=== PATIENT | female | born 1975 | race Caucasian/White ===

== ENCOUNTER 2019-08-14 17:47 | Inpatient (IN) | payer BC ==
[2019-08-14] MEDS ORDERED: Sodium Chloride 0.9% 1,000 ML IV ONE ×2 (17:53→19:10)
[2019-08-14] MEDS ORDERED: LORazepam 2 MG/ML SDV IVPUSH ONE (17:53)
--- NOTE | 2019-08-14 17:58 | EDM.PDOC ---
ED HPI GENERAL MEDICAL PROBLEM - General Stated Complaint: FAINT,BODY PAIN Time Seen by Provider: 08/14/19 17:55 Source of Information: Reports: Patient History Limitations: Reports: No Limitations - History of Present Illness INITIAL COMMENTS - FREE TEXT/NARRATIVE: Inga is a 43 year old female who presents to the ED today via private vehicle with sudden onset of epigastric pain, severe in nature with body tingling. symptoms started approx one hour prior to arrival. Patient reports that this is the third time this has happened this week. Pain not affected by mediations or movement. Patient reports hx of "enlarged heart" denies any other hx or daily medication. Patient reports she was playing a game when pain started. Onset: Today, Sudden Duration: Hour(s): (1) Chest Pain Score (Numeric/FACES): 3 - Related Data Allergies Allergy/AdvReac Type Severity Reaction Status Date / Time morphine Allergy Itching Verified 08/14/19 18:13 Home Meds: Home Meds LORazepam [Ativan] 1 tab PO DAILY 08/14/19 [History] Omeprazole Magnesium [Prilosec Otc] 20 mg PO DAILY #30 tablet. 08/14/19 [Rx] ED ROS GENERAL - Review of Systems Review Of Systems: Comprehensive ROS is negative, except as noted in HPI. ED EXAM, GENERAL - Physical Exam Exam: See Below Exam Limited By: No Limitations General Appearance: Alert, Moderate Distress (gaurding her mid chest, diaphoretic, clammy) Throat/Mouth: Normal Inspection, Normal Oropharynx Head: Atraumatic Neck: Normal Inspection Respiratory/Chest: No Respiratory Distress, Lungs Clear, Normal Breath Sounds, Other (tenderness on exam to xyphoid process) Cardiovascular: Normal Peripheral Pulses, No Murmur Back Exam: Normal Inspection Extremities: Normal Inspection Neurological: Alert, Oriented Psychiatric: Anxious Skin Exam: Diaphoretic, Pallor Lymphatic: No Adenopathy EKG INTERPRETATION EKG Date: 08/14/19 Time: 18:10 Rhythm: NSR [place]: Normal P-Wave: Present QRS: Normal ST-T: Normal QT: Normal Comparison: NA - No Prior EKG Course - Vital Signs Last Recorded V/S: Last Vital Signs Temp 35.1 C L 08/14/19 18:34 Pulse 66 08/14/19 21:25 Resp 19 08/14/19 21:25 BP 101/59 L 08/14/19 21:25 Pulse Ox 99 08/14/19 21:25 Inga is a 43 year old female, presents to the ED with c/o chest pain. Please refer to HPI and focused exam. Patient reports this is her third episode of this in the last week. Patient arrives here very anxious, pale and diaphoretic , came back in wheelchair with RN moaning loudly in pain, clutching her chest. Patient was changed into gown, PIV established, she denies any hx of this prior to this week. Patient has stable blood pressure, heart rate, she is afebrile with 100% oxygen saturation. Patient moaning about IV start stating repeatedly that she "vasovagals" when she is stuck with a needle. Patient denies any recent illness, she does endorse nausea and is noted to have intermittent gagging during initial exam and cares. I am not certain if this is really cardiac in etiology, PE on the differential but patient is not hypoxic and denies SOB. I think her symptoms have certainly an anxiety/panic attack component. Esophageal spasm may be playing a role as well. Patient given IV Ativan pending labs. Patient reports that she does have Ativan at home for anxiety. Pain improved here with IV Ativan and GI cocktail. Informed nurse that pain happens when she drinks ETOH and/or eats fatty foods. Patient's labs here not concerning for an acute cholecystitis, however , at 1999-Patient's pain returned, not as severe, given Carafate and Fentanyl. CT scan obtained pain seems colicky in nature. 2119-CT scan returns with multiple stones, distended gallbladder with biliary duct dilation. ? suspicion of faint stones within the distal common bile duct measuring up to 2-3 mm although unlikely given normal labs. Discussed case with Dr. Lockett, surgeon, plan to admit patient, NPO after midnight, surgery tomorrow morning. Patient updated on plan of care and is agreeable. Inpatient ordered initiated. Azactam and Unasyn started per Dr. Lockett request. Patient admitted in stable condition. - Orders/Labs/Meds Orders: Active Orders 24 hr Category Date Time Status EKG Documentation Completion [RC] ASDIRECTED Care 08/14/19 17:53 Active Peripheral IV Care [RC] . DIRECTED Care 06/12/20 17:53 Active Chest 2V [CR] Stat Exams 08/14/19 18:31 Taken CORONAVIRUS COVID-19, RANDY Stat Lab 08/14/19 21:29 Ordered Ampicillin/Sulbactam Na [Unasyn] 3 gm Med 08/14/19 21:24 Active Sodium Chloride 0.9% [Normal Saline] 100 ml IV ONETIME Aztreonam [Azactam] 1 gm Med 08/14/19 21:30 Active Sodium Chloride 0.9% [Normal Saline] 50 ml IV Q8H Iopamidol [Isovue-300 (61%)] Med 08/14/19 20:45 Active 100 ml IV . DIRECTED Sodium Chloride 0.9% [Normal Saline] 80 ml Med 08/14/19 20:45 Active IV ASDIRECTED Sodium Chloride 0.9% [Saline Flush] Med 08/14/19 17:53 Active 10 ml FLUSH ASDIRECTED PRN Peripheral IV Insertion Adult [OM.PC] Routine Oth 08/14/19 17:53 Ordered EKG 12 Lead [EK] Stat Ther 08/14/19 17:52 Ordered Medication Orders Sodium Chloride (Normal Saline) 80 mls @ 3 mls/sec IV ASDIRECTED SUJIT Last Admin: 08/14/19 20:46 Dose: 3 mls/sec Ampicillin Sodium/Sulbactam (Sodium 3 gm/ Sodium Chloride) 100 mls @ 200 mls/ hr IV ONETIME ONE Stop: 08/14/19 21:53 Aztreonam 1 gm/ Sodium (Chloride) 50 mls @ 100 mls/hr IV Q8H SUJIT Iopamidol (Isovue-300 (61%)) 100 ml IV . DIRECTED SUJIT Last Admin: 08/14/19 20:46 Dose: 100 ml Sodium Chloride (Saline Flush) 10 ml FLUSH ASDIRECTED PRN PRN Reason: Keep Vein Open Last Admin: 08/14/19 20:46 Dose: 10 ml Admin: 08/14/19 18:18 Dose: 10 ml Labs: Laboratory Tests 08/14/19 08/14/19 08/14/19 Range/Units 17:54 18:07 18:07 WBC 10.0 (4.5-11.0) K/uL RBC 4.48 (3.30-5.50) M/uL Hgb 13.8 (12.0-15.0) g/dL Hct 40.7 (36.0-48.0) % MCV 91 (80-98) fL MCH 31 (27-31) pg MCHC 34 (32-36) % Plt Count 351 (150-400) K/uL Neut % (Auto) 48 (36-66) % Lymph % (Auto) 41 (24-44) % Gilchrist % (Auto) 9 H (2-6) % Eos % (Auto) 1 L (2-4) % Baso % (Auto) 1 (0-1) % D-Dimer, Quantitative < 100 (0.0-400.0) ng/mL Sodium 139 L (140-148) mmol/L Potassium 3.4 L (3.6-5.2) mmol/L Chloride 100 (100-108) mmol/L Carbon Dioxide 21 (21-32) mmol/L Anion Gap 21.4 H (5.0-14.0) mmol/L BUN 20 H (7-18) mg/dL Creatinine 1.3 H (0.6-1.0) mg/dL Est Cr Clr Drug Dosing 57.45 mL/min Estimated GFR (MDRD) 45 L (>60) Glucose 132 H (74-106) mg/dL Calcium 9.2 (8.5-10.1) mg/dL Total Bilirubin 0.5 (0.2-1.0) mg/dL AST 31 (15-37) U/L ALT 33 (12-78) U/L Alkaline Phosphatase 41 L (46-116) U/L Troponin I < 0.017 (0.000-0.056) ng/mL Total Protein 7.5 (6.4-8.2) g/dL Albumin 4.4 (3.4-5.0) g/dL Globulin 3.1 (2.3-3.5) g/dL Albumin/Globulin Ratio 1.4 (1.2-2.2) Lipase (73-393) U/L Urine Color (YELLOW) Urine Appearance (CLEAR) Urine pH (5.0-8.0) Ur Specific [place] (1.008-1.030) Urine Protein (NEGATIVE) mg/dL Urine Glucose (UA) (NEGATIVE) mg/dL Urine Ketones (NEGATIVE) mg/dL Urine Occult Blood (NEGATIVE) Urine Nitrite (NEGATIVE) Urine Bilirubin (NEGATIVE) Urine Urobilinogen (0.2-1.0) EU/dL Ur Leukocyte Esterase (NEGATIVE) Urine RBC (0-5) Urine WBC (0-5) Ur Epithelial Cells Amorphous Sediment Urine Bacteria Urine Mucus Urine HCG, Qual Urine Opiates Screen (NEGATIVE) Ur Oxycodone Screen (NEGATIVE) Urine Methadone Screen (NEGATIVE) Ur Propoxyphene Screen (NEGATIVE) Ur Barbiturates Screen (NEGATIVE) Ur Tricyclics Screen (NEGATIVE) Ur Phencyclidine Scrn (NEGATIVE) Ur Amphetamine Screen (NEGATIVE) U Methamphetamines Scrn (NEGATIVE) Urine MDMA Screen (NEGATIVE) U Benzodiazepines Scrn (NEGATIVE) U Cocaine Metab Screen (NEGATIVE) U Marijuana (THC) Screen (NEGATIVE) 08/14/19 08/14/19 08/14/19 Range/Units 18:16 18:16 18:42 WBC (4.5-11.0) K/uL RBC (3.30-5.50) M/uL Hgb (12.0-15.0) g/dL Hct (36.0-48.0) % MCV (80-98) fL MCH (27-31) pg MCHC (32-36) % Plt Count (150-400) K/uL Neut % (Auto) (36-66) % Lymph % (Auto) (24-44) % Gilchrist % (Auto) (2-6) % Eos % (Auto) (2-4) % Baso % (Auto) (0-1) % D-Dimer, Quantitative (0.0-400.0) ng/mL Sodium (140-148) mmol/L Potassium (3.6-5.2) mmol/L Chloride (100-108) mmol/L Carbon Dioxide (21-32) mmol/L Anion Gap (5.0-14.0) mmol/L BUN (7-18) mg/dL Creatinine (0.6-1.0) mg/dL Est Cr Clr Drug Dosing mL/min Estimated GFR (MDRD) (>60) Glucose (74-106) mg/dL Calcium (8.5-10.1) mg/dL Total Bilirubin (0.2-1.0) mg/dL AST (15-37) U/L ALT (12-78) U/L Alkaline Phosphatase (46-116) U/L Troponin I (0.000-0.056) ng/mL Total Protein (6.4-8.2) g/dL Albumin (3.4-5.0) g/dL Globulin (2.3-3.5) g/dL Albumin/Globulin Ratio (1.2-2.2) Lipase 278 (73-393) U/L Urine Color (YELLOW) Urine Appearance (CLEAR) Urine pH (5.0-8.0) Ur Specific [place] (1.008-1.030) Urine Protein (NEGATIVE) mg/dL Urine Glucose (UA) (NEGATIVE) mg/dL Urine Ketones (NEGATIVE) mg/dL Urine Occult Blood (NEGATIVE) Urine Nitrite (NEGATIVE) Urine Bilirubin (NEGATIVE) Urine Urobilinogen (0.2-1.0) EU/dL Ur Leukocyte Esterase (NEGATIVE) Urine RBC (0-5) Urine WBC (0-5) Ur Epithelial Cells Amorphous Sediment Urine Bacteria Urine Mucus Urine HCG, Qual Negative Urine Opiates Screen Negative (NEGATIVE) Ur Oxycodone Screen Negative (NEGATIVE) Urine Methadone Screen Negative (NEGATIVE) Ur Propoxyphene Screen Negative (NEGATIVE) Ur Barbiturates Screen Negative (NEGATIVE) Ur Tricyclics Screen Negative (NEGATIVE) Ur Phencyclidine Scrn Negative (NEGATIVE) Ur Amphetamine Screen Negative (NEGATIVE) U Methamphetamines Scrn Negative (NEGATIVE) Urine MDMA Screen Negative (NEGATIVE) U Benzodiazepines Scrn Negative (NEGATIVE) U Cocaine Metab Screen Negative (NEGATIVE) U Marijuana (THC) Screen Negative (NEGATIVE) 08/14/19 Range/Units 20:35 WBC (4.5-11.0) K/uL RBC (3.30-5.50) M/uL Hgb (12.0-15.0) g/dL Hct (36.0-48.0) % MCV (80-98) fL MCH (27-31) pg MCHC (32-36) % Plt Count (150-400) K/uL Neut % (Auto) (36-66) % Lymph % (Auto) (24-44) % [place] % (Auto) (2-6) % Eos % (Auto) (2-4) % Baso % (Auto) (0-1) % D-Dimer, Quantitative (0.0-400.0) ng/mL Sodium (140-148) mmol/L Potassium (3.6-5.2) mmol/L Chloride (100-108) mmol/L Carbon Dioxide (21-32) mmol/L Anion Gap (5.0-14.0) mmol/L BUN (7-18) mg/dL Creatinine (0.6-1.0) mg/dL Est Cr Clr Drug Dosing mL/min Estimated GFR (MDRD) (>60) Glucose (74-106) mg/dL Calcium (8.5-10.1) mg/dL Total Bilirubin (0.2-1.0) mg/dL AST (15-37) U/L ALT (12-78) U/L Alkaline Phosphatase (46-116) U/L Troponin I (0.000-0.056) ng/mL Total Protein (6.4-8.2) g/dL Albumin (3.4-5.0) g/dL Globulin (2.3-3.5) g/dL Albumin/Globulin Ratio (1.2-2.2) Lipase (73-393) U/L Urine Color Yellow (YELLOW) Urine Appearance Clear (CLEAR) Urine pH 7.0 (5.0-8.0) Ur Specific [place] 1.020 (1.008-1.030) Urine Protein Negative (NEGATIVE) mg/dL Urine Glucose (UA) Negative (NEGATIVE) mg/dL Urine Ketones Trace H (NEGATIVE) mg/dL Urine Occult Blood Negative (NEGATIVE) Urine Nitrite Negative (NEGATIVE) Urine Bilirubin Negative (NEGATIVE) Urine Urobilinogen 0.2 (0.2-1.0) EU/dL Ur Leukocyte Esterase Negative (NEGATIVE) Urine RBC 0-5 (0-5) Urine WBC 0-5 (0-5) Ur Epithelial Cells Few Amorphous Sediment Few Urine Bacteria Not seen Urine Mucus Not seen Urine HCG, Qual Urine Opiates Screen (NEGATIVE) Ur Oxycodone Screen (NEGATIVE) Urine Methadone Screen (NEGATIVE) Ur Propoxyphene Screen (NEGATIVE) Ur Barbiturates Screen (NEGATIVE) Ur Tricyclics Screen (NEGATIVE) Ur Phencyclidine Scrn (NEGATIVE) Ur Amphetamine Screen (NEGATIVE) U Methamphetamines Scrn (NEGATIVE) Urine MDMA Screen (NEGATIVE) U Benzodiazepines Scrn (NEGATIVE) U Cocaine Metab Screen (NEGATIVE) U Marijuana (THC) Screen (NEGATIVE) Meds: Medications Generic Name Dose Route Start Last Admin Trade Name Freq PRN Reason Stop Dose Admin Sodium Chloride 80 mls @ 3 mls/sec 08/14/19 20:45 08/14/19 20:46 Normal Saline IV 3 mls/sec ASDIRECTED SUJIT Administration Ampicillin Sodium/Sulbactam 100 mls @ 200 mls/hr 08/14/19 21:24 Sodium 3 gm/ Sodium Chloride IV 08/14/19 21:53 ONETIME ONE Aztreonam 1 gm/ Sodium 50 mls @ 100 mls/hr 08/14/19 21:30 Chloride IV Q8H SUJIT Iopamidol 100 ml 08/14/19 20:45 08/14/19 20:46 Isovue-300 (61%) IV 100 ml . DIRECTED SUJIT Administration Sodium Chloride 10 ml 08/14/19 17:53 08/14/19 20:46 Saline Flush FLUSH 10 ml ASDIRECTED PRN Administration Keep Vein Open Discontinued Medications Generic Name Dose Route Start Last Admin Trade Name Freq PRN Reason Stop Dose Admin Al Hydroxide/Mg Hydroxide 15 0 ml 08/14/19 18:30 08/14/19 18:44 ml/ Lidocaine HCl 15 ml PO 08/14/19 18:31 15 ml ONETIME ONE Administration Fentanyl 50 mcg 08/14/19 19:49 08/14/19 20:01 Sublimaze IVPUSH 08/14/19 19:50 50 mcg ONETIME ONE Administration Hydromorphone HCl 1 mg 08/14/19 20:22 08/14/19 21:12 Dilaudid IVPUSH 08/14/19 20:23 1 mg ONETIME ONE Administration Sodium Chloride 1,000 mls @ 999 mls/hr 08/14/19 17:53 08/14/19 18:18 Normal Saline IV 08/14/19 18:53 999 mls/hr .BOLUS ONE Administration Sodium Chloride 1,000 mls @ 999 mls/hr 08/14/19 19:10 08/14/19 19:21 Normal Saline IV 08/14/19 20:10 999 mls/hr .BOLUS ONE Administration Lorazepam 1 mg 08/14/19 17:53 08/14/19 18:18 Ativan IVPUSH 08/14/19 17:54 1 mg ONETIME ONE Administration Sucralfate 1 gm 08/14/19 20:07 08/14/19 21:16 Carafate PO 08/14/19 20:08 1 gm ONETIME ONE Administration Departure - Departure Time of Disposition: 22:00 Disposition: Admitted As Inpatient 68 Condition: Fair Clinical Impression: Epigastric pain, Acute cholecystitis - Discharge Information Prescriptions: Omeprazole Magnesium [Prilosec Otc] 20 mg PO DAILY #30 tablet. Referrals: PCP,None [Primary Care Provider] - Additional Instructions: Start Prilosec tonight and take daily. Follow up with your primary care provider when you get back home for outpatient Ultrasound for your gallbladder. Avoid fatty foods and alcohol until then. I want your kidney function rechecked next week. Return here with any worsening symptoms or new concerns. Sepsis Event Note (ED) - Focused Exam Vital Signs: Vital Signs Temp Pulse Resp BP Pulse Ox 08/14/19 21:25 66 19 101/59 L 99 08/14/19 20:55 16 L 17 109/63 93 L 08/14/19 20:28 58 L 18 94/48 L 99 08/14/19 20:05 51 L 12 112/53 L 94 L 08/14/19 19:25 47 L 17 114/61 100 08/14/19 18:34 35.1 C L 67 25 H 110/53 L 08/14/19 18:33 54 L 20 108/61 100 08/14/19 18:15 52 L 18 114/58 L 99 08/14/19 17:55 35.1 C L 67 32 H 110/53 L 100 - My Orders Last 24 Hours: My Active Orders 08/14/19 17:52 EKG 12 Lead [EK] Stat 08/14/19 17:53 EKG Documentation Completion [RC] ASDIRECTED Peripheral IV Care [RC] . DIRECTED Sodium Chloride 0.9% [Saline Flush] 10 ml FLUSH ASDIRECTED PRN Peripheral IV Insertion Adult [OM.PC] Routine 08/14/19 18:31 Chest 2V [CR] Stat 08/14/19 20:45 Iopamidol [Isovue-300 (61%)] 100 ml IV . DIRECTED Sodium Chloride 0.9% [Normal Saline] 80 ml IV ASDIRECTED 08/14/19 21:24 Ampicillin/Sulbactam Na [Unasyn] 3 gm Sodium Chloride 0.9% [Normal Saline] 100 ml IV ONETIME 08/14/19 21:29 CORONAVIRUS COVID-19, RANDY Stat 08/14/19 21:30 Aztreonam [Azactam] 1 gm Sodium Chloride 0.9% [Normal Saline] 50 ml IV Q8H - Assessment/Plan Last 24 Hours: My Active Orders 08/14/19 17:52 EKG 12 Lead [EK] Stat 08/14/19 17:53 EKG Documentation Completion [RC] ASDIRECTED Peripheral IV Care [RC] . DIRECTED Sodium Chloride 0.9% [Saline Flush] 10 ml FLUSH ASDIRECTED PRN Peripheral IV Insertion Adult [OM.PC] Routine 08/14/19 18:31 Chest 2V [CR] Stat 08/14/19 20:45 Iopamidol [Isovue-300 (61%)] 100 ml IV . DIRECTED Sodium Chloride 0.9% [Normal Saline] 80 ml IV ASDIRECTED 08/14/19 21:24 Ampicillin/Sulbactam Na [Unasyn] 3 gm Sodium Chloride 0.9% [Normal Saline] 100 ml IV ONETIME 08/14/19 21:29 CORONAVIRUS COVID-19, RANDY Stat 08/14/19 21:30 Aztreonam [Azactam] 1 gm Sodium Chloride 0.9% [Normal Saline] 50 ml IV Q8H
[2019-08-14] MEDS: Sodium Chloride 0.9% 10 ML Syringe FLUSH PRN ×2 (18:18→20:46)
[2019-08-14] MEDS ORDERED: Alum Hydrox/Mag Hydrox/Simeth 15 ML, Lidocaine 2% 15 ML PO ONE ×2 (18:30)
[2019-08-14] MEDS ORDERED: fentaNYL 100 MCG/2 ML SDV IVPUSH ONE (19:49)
[2019-08-14] MEDS ORDERED: Sucralfate Suspension 1 GM/10 ML Cup PO ONE (20:07)
[2019-08-14] MEDS ORDERED: HYDROmorphone 1 MG/ML Syringe IVPUSH ONE (20:22)
[2019-08-14] MEDS ORDERED: Iopamidol 612 MG/ML 100 ML Bottle IV SCH (20:45)
[2019-08-14] MEDS ORDERED: Sodium Chloride 0.9% 80 ML IV SCH (20:45)
--- NOTE | 2019-08-14 21:14 | CRLCT ---
Indication: epigastric pain Technique: Post contrast CT abdomen and pelvis. 100 cc Isovue-300 intravenous contrast. Please note that all CT scans at this facility use dose modulation, iterative reconstruction, and/or weight-based dosing when appropriate to reduce radiation dose to as low as reasonably achievable. Comparison: No comparisons Findings: Lung bases clear. No pleural effusion or infiltrate. Normal spleen and adrenal glands. Kidneys normal. There is distention of the biliary tree with intrahepatic biliary duct dilation and prominence of the common bile duct. Faint densities are located within the distal common bile duct, series 2, image 56 and series 3, image 26. Multiple calcified stones within the gallbladder lumen are present measuring up to approximately 5 millimeters. No bowel obstruction or free air. No free fluid or abscess. Bladder is normal. Mild pelvic free fluid, likely physiologic. No fracture. No adnexal mass. Impression: Multiple calcified gallstones within a moderately distended gallbladder along with biliary duct dilation and suspicion of faint stones within the distal common bile duct measuring up to approximately 2-3 millimeters. Overall, findings are concerning for cholecystitis. Ultrasound could be performed for further evaluation. Please note that all CT scans at this facility use dose modulation, iterative reconstruction, and/or weight-based dosing when appropriate to reduce radiation dose to as low as reasonably achievable. Dictated by Jason Romero MD @ Aug 14 2019 9:06PM Signed by Dr. Jason Romero @ Aug 14 2019 9:13PM
[2019-08-14] MEDS ORDERED: Ampicillin/Sulbactam Na 3 GM in Sodium Chloride 0.9% 100 ML IV ONE (21:24)
[2019-08-14] MEDS ORDERED: Ondansetron 4 MG/2 ML SDV IVPUSH PRN (22:29)
[2019-08-14] MEDS ORDERED: HYDROmorphone 0.5 MG/0.5 ML Syringe IVPUSH PRN (22:30)
[2019-08-14] MEDS: Lactated Ringers 1,000 ML IV SCH (23:14)
[2019-08-14] MEDS ORDERED: diphenhydrAMINE 50 MG/ML SDV IVPUSH PRN (23:31)
[2019-08-15] MEDS: Ampicillin/Sulbactam Na 3 GM in Sodium Chloride 0.9% 100 ML IV SCH ×4 (03:35→22:36)
[2019-08-15] MEDS ORDERED: Bupivacaine 0.5%/EPINEPHrine 1:200,000 50 ML MDV ONE (06:19)
[2019-08-15] MEDS: Lactated Ringers 1,000 ML IV SCH (07:55)
[2019-08-15] MEDS ORDERED: Ondansetron 4 MG/2 ML SDV ONE (07:58)
[2019-08-15] MEDS ORDERED: Succinylcholine 200 MG/10 ML MDV ONE (07:58)
[2019-08-15] MEDS ORDERED: Neostigmine Methylsulfate 1 MG/ML 5 ML Syringe ONE (07:58)
[2019-08-15] MEDS ORDERED: Glycopyrrolate 0.2 MG/ML 5 ML MDV ONE (07:58)
[2019-08-15] MEDS ORDERED: Propofol 200 MG/20 ML SDV ONE (07:58)
[2019-08-15] MEDS ORDERED: Dexamethasone 4 MG/ML SDV ONE (07:58)
[2019-08-15] MEDS ORDERED: Rocuronium 50 MG/5 ML Vial ONE (07:58)
[2019-08-15] MEDS ORDERED: fentaNYL 250 MCG/5 ML SDV ONE ×2 (08:00→10:10)
[2019-08-15] MEDS ORDERED: Ropivacaine 35 ML, dexAMETHasone 8 MG, EPINEPHrine 0.4 MG, Sodium Chloride 0.9% 42.6 ML NERVRT SCH ×4 (09:30)
[2019-08-15] MEDS ORDERED: hydrOXYzine HCL 100 MG/2 ML SDV IM ONE (11:09)
[2019-08-15] MEDS ORDERED: Ondansetron 4 MG/2 ML SDV IVPUSH ONE (11:22)
[2019-08-15] MEDS ORDERED: Meperidine PF 50 MG/ML Syringe ONE (11:32)
[2019-08-15] MEDS ORDERED: Acetaminophen/HYDROcodone 325-5 MG Tab PO PRN (12:32)
[2019-08-15] MEDS ORDERED: HYDROmorphone 0.5 MG/0.5 ML Syringe IVPUSH PRN (12:32)
[2019-08-15] MEDS ORDERED: LORazepam 1 MG Tab PO PRN (12:34)
[2019-08-15] MEDS ORDERED: Dextrose 5%-Lactated Ringers 1,000 ML IV SCH (12:45)
[2019-08-15] MEDS ORDERED: Ondansetron 4 MG/2 ML SDV IVPUSH PRN (13:00)
[2019-08-15] MEDS ORDERED: Pantoprazole 40 MG Vial IVPUSH SCH (14:00)
[2019-08-15] MEDS: HYDROmorphone 1 MG/ML Syringe IV PRN (18:58)
[2019-08-16] MEDS: HYDROmorphone 1 MG/ML Syringe IV PRN (03:41)
[2019-08-16] MEDS: Ampicillin/Sulbactam Na 3 GM in Sodium Chloride 0.9% 100 ML IV SCH (03:42)
--- NOTE | 2019-08-16 11:49 | DISCH ---
FINAL DIAGNOSES: 1. Subacute cholecystitis and cholelithiasis with adjacent pericholecystic abscess. 2. Incarcerated periumbilical incisional hernia. OPERATIVE PROCEDURE: Diagnostic laparoscopy with: 1. Cholecystectomy. 2. Drainage of pericholecystic abscess. 3. Repair of incarcerated incisional hernia. SUMMARY: This is a 43-year-old female presenting with acute onset of upper abdominal pain. Workup consisted of a CAT scan, which showed a thickened wall of the gallbladder with cholelithiasis. The patient was admitted, on IV antibiotics overnight and underwent a laparoscopic cholecystectomy on 08/15/2019. The patient was noted to have a thin purulent fluid collection behind the gallbladder consistent with a pericholecystic abscess, which was drained concurrently, and she also had an incarcerated hernia in the umbilical area related to previous trocar site hernia, which was repaired as well. Postoperatively, she has had no significant problems. She will be discharged home on [place] 5/325, 1 to 2 tablets q.4 hours p.r.n. pain, in addition to her usual Ativan and Prilosec. JAYLEN drain will be removed prior to discharge today. She will be instructed to follow up with her personal physician in [place], [place], a week from tomorrow, i.e. on 08/24/2019. The operative report and pathology report will be forwarded to the [facility] in [place] as well.
--- NOTE | 2019-08-17 08:58 | CR ---
CHEST: 2 view CLINICAL HISTORY:Chest pain COMPARISON:None FINDINGS: The heart size, pulmonary vascularity and hilar structures are normal. No infiltrate effusion or pneumothorax is seen. IMPRESSION: No acute cardiopulmonary process
--- NOTE | 2019-08-20 08:33 | OR ---
DATE OF PROCEDURE: 08/15/2019 SURGEON: Froy Lockett MD PREOPERATIVE DIAGNOSIS: Acute cholecystitis. POSTOPERATIVE DIAGNOSES: 1. Subacute cholecystitis and cholelithiasis. 2. Adjacent pericholecystic abscess. 3. Incarcerated periumbilical incisional hernia. OPERATIVE PROCEDURES: Diagnostic laparoscopy with: 1. Cholecystectomy (85322). 2. Drainage of pericholecystic abscess (10151). 3. Repair of incarcerated incisional hernia (89597). ANESTHESIA: General. INDICATION FOR PROCEDURE: This 43-year-old is visiting from [place], [place], presenting with a picture of acute cholecystitis. Plan is to proceed with laparoscopically or if necessary open cholecystectomy. Potential risks of procedure including bleeding, infection, injury to underlying viscera such as common bile duct, possible migration of stones into the common bile duct, requiring additional interventions for correction, as well as a remote possibility of cardiopulmonary, septic, or hemorrhagic complications leading to were discussed, and the patient wishes to proceed. DETAILS OF PROCEDURE: The patient was taken to the operating room, and after general endotracheal anesthesia was induced, the abdomen was prepped and draped. Initial examination showed a significant hernia located in the periumbilical area. This appeared to be related to one of the patient's previous trocar incisions. An incision over the midline just below the umbilicus was made and carried down through the skin and subcutaneous tissue and the hernia contents were then excised, this left a fascial opening which easily admitted a 12 mm trocar, which was used to inflate the peritoneal cavity with CO2. Laparoscope was inserted, and no underlying trocar insertion site injuries were seen. Following this, a 12 mm epigastric trocar was placed, along with 5 mm right abdominal trocar, and the upper abdomen was examined. The patient was noted to have a tensely distended gallbladder. This would appear to have appearance more of a subacute cholecystitis. There was a marked edema of the entire gallbladder wall, especially in the area of the cystohepatic triangle. Upon initial dissection of that area, there was quite a bit of fat necrosis located in the soft tissues around the gallbladder neck and cystic duct triangle. As one elevated that area, there was an area of white purulent material behind the gallbladder. Cultures of this were obtained, which did show some gram-negative rods, consistent with an abscess at that location. The dissection then continued until the gallbladder neck/cystic duct junction, and adjacent cystic artery were well delineated. At that point, the cystic artery was clipped 3 times proximally and divided with Harmonic Scalpel. Cystic duct/gallbladder neck junction was quite thickened and friable. It was felt this was best dealt with, with a stapled closure. This was accomplished with a AYLA garner load. The gallbladder was then dissected off the gallbladder bed using Harmonic scalpel and delivered through the epigastric trocar site. It was noted to have some tiny black stones within it. The area of dissection was inspected. No further problems were noted. The camera port was then brought into the epigastric trocar site, and 4 sutures were then placed in the area around the incisional hernia in the periumbilical location, closing this in a transverse orientation. Once these were in place, the fascia at the epigastric site was closed with 0 Vicryl stitch and the peritoneal cavity deflated. The sutures were then tied, and the skin incisions were closed with some 4-0 Vicryl stitch. Prior to closure, bilateral transversus abdominis plane blocks were placed under direct vision, and the incision was anesthetized with 1% lidocaine mixed with Marcaine. The patient was taken to the recovery room in satisfactory condition. There were no evident complications. Froy Lockett MD /[id number]
== END 2019-08-16 13:40 | disposition home or self-care (01) | DRG 263 ==
LOC: JP.ED 17:47 → JP.MS 21:30
PROVIDERS: ADMIT Surgery; ATTEND Surgery
PROC: 0FT44ZZ Resection of Gallbladder, Percutaneous Endoscopic Approach (ICD-10-PCS; principal; 2019-08-14)
PROC: 0F944ZZ Drainage of Gallbladder, Percutaneous Endoscopic Approach (ICD-10-PCS; 2019-08-14)
PROC: 0WQF4ZZ Repair Abdominal Wall, Percutaneous Endoscopic Approach (ICD-10-PCS; 2019-08-14)
DX: K80.00 Calculus of gallbladder with acute cholecystitis without obstruction (principal); Z79.899 Other long term (current) drug therapy; K42.0 Umbilical hernia with obstruction, without gangrene; Z88.5 Allergy status to narcotic agent
CPT/HCPCS: 36415; 71046; 71046-26; 74177; 80053; 80305-QW; 81001; 81025; 83690; 84484; 85025; 85379; 87070; 87075; 87205; 93005; 96361; 96374; 96375; 99285-25; A9270-GY; C9113; J0171; J0295; J0330; J1100; J1170; J1200; J2060; J2175; J2405; J2704; J2710; J2795; J3010; J3410; J3490; J7030; J7050; J7120; J7121; Q9967; U0002